=== PATIENT | female | born 1950 | race Caucasian/White ===

== ENCOUNTER → 2020-06-18 | Outpatient (CLI) | payer MEDICARE | END | disposition home or self-care (01) | LOC: STAR 09:19 | PROVIDERS: ATTEND Orthopaedic Surgery Hand Surgery | DX: Z20.828 Contact with and (suspected) exposure to other viral communicable diseases (principal) | CPT/HCPCS: 87635 ==

== ENCOUNTER 2020-06-23 05:39 | Day surgery (SDC) | payer MEDICARE, OTHER ==
[~2020-06-23] VITALS: Ht 167.6 cm; Wt 83.0 kg
[2020-06-23] MEDS ORDERED: CHLORHEXIDINE 15 ML UDC MM STA (06:03)
[2020-06-23 06:05] VITALS: BP 131/81
[2020-06-23] MEDS ORDERED: LACTATED RINGERS 1,000 ML IV SCH (06:30)
[2020-06-23] MEDS ORDERED: MIDAZOLAM 1 MG/ML, 2ML ONE (06:51)
[2020-06-23] MEDS ORDERED: TOLT4CAP PO (06:52)
[2020-06-23] MEDS ORDERED: ZOLP-413 PO (06:52)
[2020-06-23] MEDS ORDERED: LISI-170 PO (06:52)
[2020-06-23] MEDS ORDERED: PROP10TA16 PO (06:52)
[2020-06-23] MEDS ORDERED: DULO60CA7 PO (06:52)
[2020-06-23] MEDS ORDERED: LABETALOL 5MG/ML, 20ML IV PRN (07:00)
[2020-06-23] MEDS ORDERED: OXYcodone 5 MG/5 ML ORAL.SOL UDC PO PRN (07:00)
[2020-06-23] MEDS ORDERED: hydrALAzine 20 MG/ML, 1ML IV PRN (07:00)
[2020-06-23] MEDS ORDERED: FENTANYL PF 100 MCG/2ML IV PRN (07:00)
[2020-06-23] MEDS ORDERED: HYDROmorphone 1 MG/ML, 1ML INJ IVPush PRN (07:00)
[2020-06-23] MEDS ORDERED: ACETAMINOPHEN 325 MG TABLET PO PRN (07:00)
[2020-06-23] MEDS ORDERED: ONDANSETRON 2MG/ML, 2ML IVPush PRN (07:00)
[2020-06-23] MEDS ORDERED: PROPOFOL 10 MG/ML, 20ML ONE (08:37)
== END 2020-06-23 08:45 | disposition home or self-care (01) ==
LOC: OUT 05:39
PROVIDERS: ATTEND Orthopaedic Surgery Hand Surgery
DX: M65.331 Trigger finger, right middle finger (principal); I10 Essential (primary) hypertension; F32.9 Major depressive disorder, single episode, unspecified; F41.9 Anxiety disorder, unspecified; Z79.82 Long term (current) use of aspirin; Z79.891 Long term (current) use of opiate analgesic; Z79.899 Other long term (current) drug therapy; Z98.890 Other specified postprocedural states; Z82.49 Family history of ischemic heart disease and other diseases of the circulatory system
CPT/HCPCS: 26055; 93005; J2250; J2704; J7120